=== PATIENT | female | born 2005 | race Caucasian/White ===

== ENCOUNTER 2024-01-03 00:05 | Inpatient (IN) | payer OTHER ==
[2024-01-03] MEDS ORDERED: ROPivacaine PF 0.2% 200 ML IV ONE (01:20)
[2024-01-03] MEDS ORDERED: LR 1,000 ML IV ONE (01:21)
== END 2024-01-04 10:00 | disposition home or self-care (01) | DRG 807 ==
LOC: LDRO 00:05 → COL.ER 00:05 → OB 08:00 → EDSTATUS 14:24 → OB 01-04 10:00
PROVIDERS: ADMIT Obstetrics & Gynecology
PROC: 10E0XZZ Delivery of Products of Conception, External Approach (ICD-10-PCS; principal; 2024-01-03)
PROC: 0KQM0ZZ Repair Perineum Muscle, Open Approach (ICD-10-PCS; 2024-01-03)
DX: O62.3 Precipitate labor (principal); Z37.0 Single live birth; Z3A.39 39 weeks gestation of pregnancy; O70.1 Second degree perineal laceration during delivery; O77.0 Labor and delivery complicated by meconium in amniotic fluid
CPT/HCPCS: J2795; J7120